=== PATIENT | female | born 1970 | race Caucasian/White ===

== ENCOUNTER 2022-02-14 12:08 | Emergency (ER) | payer BC ==
[2022-02-14] MEDS ORDERED: Sodium Chloride 0.9% 1,000 ML IV ONE (14:42)
[2022-02-14] MEDS ORDERED: Ketorolac 30 MG/ML SDV IVPUSH ONE (14:42)
== END 2022-02-14 15:49 | disposition home or self-care (01) ==
LOC: MW.ED 12:08
DX: R04.0 Epistaxis (principal); D64.9 Anemia, unspecified; Z88.2 Allergy status to sulfonamides
CPT/HCPCS: 36415; 85014; 85018; 96361; 96374; 99283; J1885; J7030

== ENCOUNTER 2022-11-17 15:50 | Emergency (ER) | payer BC, OTHER ==
[2022-11-17] MEDS ORDERED: Cephalexin 500 MG Cap PO ONE (18:03)
== END 2022-11-17 18:55 | disposition home or self-care (01) ==
LOC: MW.ED 15:50
DX: H60.13 Cellulitis of external ear, bilateral (principal); Z88.5 Allergy status to narcotic agent; Z88.2 Allergy status to sulfonamides; Z86.16 Personal history of COVID-19; Z20.822 Contact with and (suspected) exposure to COVID-19
CPT/HCPCS: 87635; 87651; 99283; A9270; U0002

== ENCOUNTER 2023-12-26 19:25 | Emergency (ER) | payer BC, OTHER ==
[2023-12-26] MEDS: Acetaminophen 500 MG Tab PO STA (22:53)
[2023-12-26] MEDS: Ibuprofen 800 MG Tab PO STA (22:53)
[2023-12-26] MEDS: oxyCODONE 5 MG Tab PO STA (22:53)
== END 2023-12-26 23:25 | disposition home or self-care (01) ==
LOC: MW.ED 19:25
DX: S52.501A Unspecified fracture of the lower end of right radius, initial encounter for closed fracture (principal); F17.210 Nicotine dependence, cigarettes, uncomplicated; Z90.49 Acquired absence of other specified parts of digestive tract; Z79.899 Other long term (current) drug therapy; Z88.2 Allergy status to sulfonamides; Z88.5 Allergy status to narcotic agent; Z75.8 Other problems related to medical facilities and other health care; W19.XXXA Unspecified fall, initial encounter
CPT/HCPCS: 29125; 73110; 99283; A9270

== ENCOUNTER 2024-03-08 15:34 | Emergency (ER) | payer BC ==
[2024-03-08] MEDS: Ibuprofen 600 MG Tab PO ONE (19:03)
[2024-03-08] MEDS: Acetaminophen 500 MG Tab PO ONE (19:03)
[2024-03-08] MEDS: Lidocaine/Epineph/Tetracaine 3 ML Syringe TOP ONE (19:03)
[2024-03-08] MEDS: Diphtheria,Pertussis(Acell),Tetanus Vaccine 0.5 ML Syringe IM ONE (19:04)
== END 2024-03-08 21:15 | disposition home or self-care (01) ==
LOC: MW.ED 15:34
DX: S01.01XA Laceration without foreign body of scalp, initial encounter (principal); Z23 Encounter for immunization; Z75.8 Other problems related to medical facilities and other health care; W00.0XXA Fall on same level due to ice and snow, initial encounter; W22.8XXA Striking against or struck by other objects, initial encounter
CPT/HCPCS: 12002; 70450; 72125; 90471; 90715; 99283; A9270

== ENCOUNTER 2024-03-16 17:37 | Emergency (ER) | payer BC | END 2024-03-16 17:51 | disposition home or self-care (01) | LOC: MW.ED 17:37 | DX: S01.01XD Laceration without foreign body of scalp, subsequent encounter (principal); W00.0XXD Fall on same level due to ice and snow, subsequent encounter | CPT/HCPCS: 99281 ==